=== PATIENT | male | born 1960 | race Caucasian/White ===

== ENCOUNTER 2018-04-14 20:59 | Emergency (ER) | payer SELFPAY ==
[~2018-04-14] VITALS: Ht 167.6 cm; Wt 90.0 kg
[2018-04-14 21:06] VITALS: BP 121/72
== END 2018-04-15 01:44 | disposition left against medical advice (07) ==
LOC: ER 20:59
DX: H57.8 Other specified disorders of eye and adnexa (principal); Z53.21 Procedure and treatment not carried out due to patient leaving prior to being seen by health care provider